=== PATIENT | female | born 1960 ===

== ENCOUNTER 2023-05-10 10:45 | Inpatient (IN) | payer OTHER ==
[~2023-05-10] VITALS: Ht 162.6 cm; Wt 81.2 kg
[2023-05-10] MEDS ORDERED: SYNTHROID75 MCG PO (15:58)
[2023-05-10] MEDS ORDERED: GRALISE600 MG PO (15:58)
[2023-05-10] MEDS ORDERED: COZAAR100 MG PO (15:58)
[2023-05-10] MEDS ORDERED: DICY20TA PO (15:59)
[2023-05-10] MEDS ORDERED: PROAIR RESPICL90 MCG IH (15:59)
[2023-05-10] MEDS ORDERED: SINGULAIR10 MG PO (15:59)
[2023-05-10] MEDS ORDERED: PEPCID40 MG PO (15:59)
[2023-05-18] MEDS ORDERED: CLONAZEPAM0.5 MG (14:07)
[2023-05-18] MEDS ORDERED: FLUOXETINE HCL40 MG (14:07)
[2023-05-18] MEDS ORDERED: RESTORIL30 MG (14:08)
[2023-05-18] MEDS ORDERED: LOSARTAN POTASS50 MG (14:08)
[2023-05-18] MEDS ORDERED: BAYER THERAPY325 MG (14:08)
[2023-05-18] MEDS ORDERED: METRONIDAZOLE/SODIUM CHLORIDE 500 MG/100 ML PIGGYBACK IV ONE ×2 (16:54→18:15)
[2023-05-18] MEDS ORDERED: CEFTRIAXONE SODIUM 2,000 MG VIAL ONE (16:54)
[2023-05-18] MEDS ORDERED: CEFTRIAXONE SODIUM 2,000 MG VIAL IV ONE (18:15)
[2023-05-18] MEDS ORDERED: DEXTROSE 50 % IN WATER 0.5 G/ML DISP.SYRIN IV PRN (19:45)
[2023-05-18] MEDS ORDERED: INSULIN LISPRO 1,000 UNIT/10 ML UNITS SUBCUTANEO PRN (19:45)
[2023-05-18] MEDS ORDERED: MORPHINE SULFATE 4 MG/ML CARTRIDGE IV PRN (19:45)
[2023-05-18] MEDS ORDERED: ONDANSETRON HCL 2 MG/ML VIAL IV PRN (19:45)
[2023-05-18] MEDS ORDERED: OxyCODONE HCL 5 MG TABLET (ROXICODONE) PO PRN (19:45)
[2023-05-18] MEDS ORDERED: RINGERS SOLUTION,LACTATED 1,000 ML IV SCH (19:45)
[2023-05-18] MEDS ORDERED: ACETAMINOPHEN 500 MG GEL..CAP PO SCH (20:00)
[2023-05-18] MEDS ORDERED: SUGAMMADEX SODIUM 200 MG/2 ML VIAL IV ONE ×2 (20:09→20:45)
[2023-05-18] MEDS ORDERED: FAMOTIDINE/PF 20 MG/2 ML VIAL IV PUSH SCH (21:00)
[2023-05-18] MEDS ORDERED: CELECOXIB 200 MG CAPSULE PO SCH (21:00)
[2023-05-18] MEDS ORDERED: FAMOTIDINE/PF 20 MG/2 ML VIAL ONE (22:51)
[2023-05-18 23:20] LABS: HEMATOCRIT 35.3 % (36.0-45.00); HEMOGLOBIN 11.5 g/dL (12.0-15.00); MEAN CELL VOLUME 88.1 fL (80.00-100.00); MEAN CORPUSCULAR HEMOGLOBIN 28.8 pg (27.00-32.0); MEAN CORPUSCULAR HGB CONC 32.7 g/dl (32.0-36.0); PLATELET COUNT 216 K/uL (150-450); RED BLOOD COUNT 4.01 M/uL (4.00-6.00); RED CELL DISTRIBUTION WIDTH 14.6 % (11.5-14.5)
[2023-05-18 23:30] LABS: ALBUMIN 3.2 gm/dL (3.4-5.0); CREATININE SERUM 0.7 mg/dL (0.55-1.02); GFR 85.35; MAGNESIUM 1.9 mg/dL (1.8-2.4); PHOSPHOROUS 3.6 mg/dL (2.5-4.9); POTASSIUM 4.28 mEq/L (3.5-5.1)
[2023-05-19] MEDS ORDERED: GABAPENTIN 300 MG CAPSULE PO ONE (00:18)
[2023-05-19] MEDS ORDERED: GABAPENTIN 300 MG CAPSULE PO SCH (01:00)
[2023-05-19 07:20] LABS: HEMATOCRIT 35.8 % (36.0-45.00); HEMOGLOBIN 11.6 g/dL (12.0-15.00); MEAN CELL VOLUME 87.9 fL (80.00-100.00); MEAN CORPUSCULAR HEMOGLOBIN 28.6 pg (27.00-32.0); MEAN CORPUSCULAR HGB CONC 32.5 g/dl (32.0-36.0); PLATELET COUNT 218 K/uL (150-450); RED BLOOD COUNT 4.07 M/uL (4.00-6.00); RED CELL DISTRIBUTION WIDTH 14.6 % (11.5-14.5)
[2023-05-19 07:57] LABS: ALBUMIN 3.3 gm/dL (3.4-5.0); CALCIUM 9.5 mg/dL (8.5-10.1); CREATININE SERUM 0.68 mg/dL (0.55-1.02); GFR 88.26; MAGNESIUM 2.1 mg/dL (1.8-2.4); PHOSPHOROUS 3.7 mg/dL (2.5-4.9); POTASSIUM 4.46 mEq/L (3.5-5.1)
[2023-05-19] MEDS ORDERED: HYOSCYAMINE SULFATE 0.125 MG TAB.SUBL SL SCH (09:00)
[2023-05-19] MEDS ORDERED: POLYETHYLENE GLYCOL 3350 17 GM BLIST.PACK PO SCH (17:00)
[2023-05-19] MEDS ORDERED: ENOXAPARIN SODIUM 40 MG/0.4 ML SYRINGE SUBCUTANEO SCH (17:00)
[2023-05-20] MEDS ORDERED: ENOXAPARIN SODIUM 40 MG/0.4 ML SYRINGE SUBCUTANEO SCH (09:00)
[2023-05-20] MEDS ORDERED: TEMAZEPAM 15 MG CAPSULE PO SCH (21:00)
[2023-05-21] MEDS ORDERED: LEVOTHYROXINE SODIUM 75 MCG TABLET PO SCH (06:00)
[2023-05-21] MEDS ORDERED: NEURONTIN300 MG PO (07:25)
[2023-05-21] MEDS ORDERED: ACETAMINOPHEN500 M2 PO (07:25)
[2023-05-21] MEDS ORDERED: LOSARTAN POTASSIUM 100 MG TABLET PO SCH (09:00)
[2023-05-21] MEDS ORDERED: FLUOXETINE HCL 20 MG CAPSULE PO SCH (09:00)
== END 2023-05-21 11:44 | disposition home or self-care (01) | DRG 330 ==
LOC: O/R 05-18 08:54 → SURH 05-18 10:30
PROVIDERS: ADMIT Surgery; ATTEND Surgery
PROC: 0DBP4ZZ Excision of Rectum, Percutaneous Endoscopic Approach (ICD-10-PCS; 2023-05-18)
PROC: 07BC4ZX Excision of Pelvis Lymphatic, Percutaneous Endoscopic Approach, Diagnostic (ICD-10-PCS; 2023-05-18)
PROC: 0DTN4ZZ Resection of Sigmoid Colon, Percutaneous Endoscopic Approach (ICD-10-PCS; principal; 2023-05-18 10:30)
DX: C18.7 Malignant neoplasm of sigmoid colon (principal); K92.1 Melena; D12.5 Benign neoplasm of sigmoid colon; R59.0 Localized enlarged lymph nodes